=== PATIENT | female | born 1945 | race Two or more races ===

== ENCOUNTER 2021-05-17 06:11 | Inpatient (IN) | payer MEDICARE, MEDICAID ==
[2021-05-17] VITALS (9 sets, daily range): BP systolic 126–154; BP diastolic 58–100
[~2021-05-17] VITALS: Ht 152.4 cm; Wt 83.2 kg
[~2021-05-17 06:11] MED LIST: ASPI1TAB20 PO; METF-370 PO; METO-159 PO; NAPR375T27 PO; NIFE1TAB31 PO; OMEP20TA63 PO
[2021-05-17] MEDS ORDERED: ceFAZolin 1GM/50ML 100 ML IV ONE (06:49)
[2021-05-17] MEDS ORDERED: VANCOMYCIN HCL 1000 MG VL ONE (07:07)
[2021-05-17] MEDS ORDERED: EPINEPHrine HCL 1 MG/1 ML AMP ONE (07:07)
[2021-05-17] MEDS ORDERED: TRANEXAMIC ACID 20 ML ONE (07:08)
[2021-05-17 07:30] LABS: Basophils # (auto) 0.1 10 ^3/uL (0-0.2); Basophils % (auto) 0.9 % (0.0-2.0); Eosinophils # (auto) 0.1 10 ^3/uL (0-0.8); Eosinophils % (auto) 1.9 % (0.0-7.0); Hematocrit 42.9 % (36.0-46.0); Hemoglobin 14.2 g/dL (12.2-16.2); Lymphocytes # (auto) 1.6 10 ^3/uL (0.4-5.4); Lymphocytes % (auto) 23.1 % (10.0-50.0); Mean Corpuscular Hemoglobin 30.2 pg (28.0-32.0); Mean Corpuscular Hgb Conc. 33.1 g/dL (32.0-36.0); Mean Corpuscular Volume 91.3 fL (80.0-100.0); Monocytes # (auto) 0.6 10 ^3/uL (0-1.3); Monocytes % (auto) 9.4 % (0.0-12.0); Neutrophils # (auto) 4.4 10 ^3/uL (1.6-8.6); Neutrophils % (auto) 64.7 % (37.0-80.0); Nucleated Red Blood Cells % 0.1 %; Red Blood Cells 4.69 10^6/uL (4.0-5.20); Red Cell Distribution Width 14.5 % (11.8-14.3); White Blood Cell 6.7 10^3/uL (4.4-10.8)
[2021-05-17] MEDS ORDERED: MIDAZOLAM HCL 2MG/2ML 2ml VIAL (1mg/ml) ONE (07:31)
[2021-05-17] MEDS ORDERED: fentaNYL CITRATE 100 MCG/2 ML VL ONE (07:31)
[2021-05-17] MEDS ORDERED: MORPHINE SULF PF 2 MG/2 ML SYRG ONE (07:31)
[2021-05-17] MEDS ORDERED: TETRACAINE 1% INJ 2 ML VIAL IJ ONE (07:36)
[2021-05-17 07:49] LABS: INR 0.99 (0.9-1.15); Partial Thromboplastin Time 26.4 sec (23.6-33.0)
[2021-05-17] MEDS ORDERED: ONDANSETRON HCL 4 MG/2 ML VIAL ONE (08:05)
[2021-05-17] MEDS ORDERED: LIDOCAINE 2% (LOCAL ANESTH.) PF 5ml SDV ONE (08:05)
[2021-05-17] MEDS ORDERED: PROPOFOL 10 MG/ML 20 ML IV ONE (09:42)
[2021-05-17] MEDS ORDERED: NALBUPHINE HCL 10 MG/1ml INJECTION SUBCUT ONE (10:00)
[2021-05-17] MEDS ORDERED: DexAMETHasone SOD PHOS 10MG/1ML VIAL INJ IV PRN (10:00)
[2021-05-17] MEDS ORDERED: HYDROmorphone HCL 2 MG/ML VL IV PRN ×2 (10:00→10:45)
[2021-05-17] MEDS ORDERED: diphenhdrAMINE HCL 50 MG/1 ML VL IV PRN (10:00)
[2021-05-17] MEDS ORDERED: NALOXONE HCL 0.4 MG/ML VIAL IV PRN (10:00)
[2021-05-17] MEDS ORDERED: oxyCODONE HCL 5MG TAB PO PRN ×2 (10:45)
[2021-05-17] MEDS: D5W/LACTATED RINGERS 1,000 ML IV SCH ×2 (11:24→22:29)
[2021-05-17] MEDS: ONDANSETRON HCL 4 MG/2 ML VIAL IV PRN ×3 (11:33→22:32)
[2021-05-17] MEDS: KETOROLAC TROMETH 30 MG/ML 1ML VIAL IV SCH ×2 (13:01→18:44)
[2021-05-17] MEDS: ACETAMINOPHEN 325 MG TAB PO SCH ×2 (13:02→18:44)
[2021-05-17] MEDS: ceFAZolin 2 GM in D5W 5% 100 ML IV SCH ×2 (16:28→22:30)
[2021-05-17] MEDS: metFORMIN HYDROCHLORIDE 500 MG TAB PO SCH (22:30)
[2021-05-17] MEDS: PREGABALIN 25 MG CAP PO SCH (22:32)
[2021-05-18] MEDS: KETOROLAC TROMETH 30 MG/ML 1ML VIAL IV SCH ×5 (00:52→23:16)
[2021-05-18] MEDS: ACETAMINOPHEN 325 MG TAB PO SCH ×5 (00:53→23:16)
[2021-05-18] MEDS: D5W/LACTATED RINGERS 1,000 ML IV SCH ×2 (06:45→16:45)
[2021-05-18 07:40] LABS: Basophils # (auto) 0 10 ^3/uL (0-0.2); Basophils % (auto) 0.6 % (0.0-2.0); Eosinophils # (auto) 0 10 ^3/uL (0-0.8); Eosinophils % (auto) 0.5 % (0.0-7.0); Hematocrit 34.2 % (36.0-46.0); Hemoglobin 11.3 g/dL (12.2-16.2); Lymphocytes # (auto) 0.7 10 ^3/uL (0.4-5.4); Lymphocytes % (auto) 12.5 % (10.0-50.0); Mean Corpuscular Hemoglobin 30.1 pg (28.0-32.0); Mean Corpuscular Hgb Conc. 33.1 g/dL (32.0-36.0); Mean Corpuscular Volume 91.1 fL (80.0-100.0); Monocytes # (auto) 0.9 10 ^3/uL (0-1.3); Neutrophils # (auto) 4.1 10 ^3/uL (1.6-8.6); Neutrophils % (auto) 71.4 % (37.0-80.0); Nucleated Red Blood Cells % 0.1 %; Red Blood Cells 3.75 10^6/uL (4.0-5.20); Red Cell Distribution Width 14.2 % (11.8-14.3); White Blood Cell 5.7 10^3/uL (4.4-10.8)
[2021-05-18 07:55] LABS: Potassium 3.6 mmol/L (3.5-5.1)
[2021-05-18 08:03] LABS: BUN/Creatinine Ratio 13.5; Calcium 7.9 mg/dL (8.5-10.1)
[2021-05-18] MEDS: ASPirin 81 mg TAB PO SCH ×2 (08:41→21:32)
[2021-05-18] MEDS: metFORMIN HYDROCHLORIDE 500 MG TAB PO SCH ×2 (08:41→21:32)
[2021-05-18] MEDS: NIFEdipine ER 30 MG TAB PO SCH (08:42)
[2021-05-18] MEDS: METOPROLOL SUCCINATE XL 50 MG TAB PO SCH (08:42)
[2021-05-18] MEDS: PREGABALIN 25 MG CAP PO SCH ×2 (08:42→21:33)
[2021-05-18 09:00] VITALS: BP 123/62
[2021-05-18 13:37] VITALS: BP 142/74
[2021-05-18 22:00] VITALS: BP 116/56
[2021-05-19 05:00] VITALS: BP 135/68
[2021-05-19] MEDS: ACETAMINOPHEN 325 MG TAB PO SCH (05:02)
[2021-05-19] MEDS: KETOROLAC TROMETH 30 MG/ML 1ML VIAL IV SCH (05:02)
[2021-05-19 09:10] VITALS: BP 126/72
[2021-05-19] MEDS: METOPROLOL SUCCINATE XL 50 MG TAB PO SCH (09:28)
[2021-05-19] MEDS: PREGABALIN 25 MG CAP PO SCH (09:28)
[2021-05-19] MEDS: metFORMIN HYDROCHLORIDE 500 MG TAB PO SCH (09:28)
[2021-05-19] MEDS: ASPirin 81 mg TAB PO SCH (09:28)
[2021-05-19] MEDS: NIFEdipine ER 30 MG TAB PO SCH (09:28)
[2021-05-19 10:18] VITALS: BP 127/63
[2021-05-19] MEDS ORDERED: ASPirin-EC 81 mg tab PO SCH (22:00)
== END 2021-05-19 11:30 | disposition home health service (06) | DRG 470 ==
LOC: SUR 06:11 → TELE 10:33 → TELE-WESTW 12:40
PROVIDERS: ADMIT Orthopaedic Surgery; ATTEND Orthopaedic Surgery
PROC: 8E0YXBZ Computer Assisted Procedure of Lower Extremity (ICD-10-PCS; 2021-05-17)
PROC: 0SRC069 Replacement of Right Knee Joint with Oxidized Zirconium on Polyethylene Synthetic Substitute, Cemented, Open Approach (ICD-10-PCS; principal; 2021-05-17 07:36)
DX: M17.11 Unilateral primary osteoarthritis, right knee (principal); D62 Acute posthemorrhagic anemia; E11.9 Type 2 diabetes mellitus without complications; Z20.822 Contact with and (suspected) exposure to COVID-19; I10 Essential (primary) hypertension; M25.761 Osteophyte, right knee; M21.161 Varus deformity, not elsewhere classified, right knee
CPT/HCPCS: 36415; 73560; 80048; 82962; 85025; 85610; 85730; 86850; 86900; 86901; 97110; 97116; 97530; G0378; J0171; J0690; J1885; J2001; J2250; J2405; J2704; J7060